=== PATIENT | male | born 1950 | race Caucasian/White ===

== ENCOUNTER → 2016-09-26 | Outpatient (REF) | payer MEDICARE ==
[2016-09-26 12:09] LABS: ANION GAP 8 MEQ/L (8-16); BLOOD UREA NITROGEN 16 MG/DL (7-18); CARBON DIOXIDE LEVEL 30 MEQ/L (21-32); CHLORIDE LEVEL 101 MEQ/L (98-107); CREATININE FOR GFR 1.09 MG/DL (0.70-1.30); GLOMERULAR FILTRATION RATE > 60.0 (>49); GLUCOSE, FASTING 97 MG/DL (80-110); SODIUM LEVEL 139 MEQ/L (136-145)
== END ==
LOC: M SFHCCLAY 08:29
PROVIDERS: ATTEND Family Medicine
DX: E78.00 Pure hypercholesterolemia, unspecified (principal); Z95.1 Presence of aortocoronary bypass graft

== ENCOUNTER → 2016-11-27 | Outpatient (CLI) | payer MEDICARE ==
[~2016-11-27] VITALS: Ht 167.6 cm; Wt 78.0 kg
[~2016-11-27] MED LIST: ASPI81TA85 PO; ATOR40TA PO; GLUC1CAP10 PO; LIDOCAINE 2% INJ 100 MG/5 ML SDV (FOR ANES.) As Ordered ONE; METO25TA74 PO; MULT1TAB10 PO; NEXI20CA PO; PROPOFOL 200 MG/20 ML VIAL As Ordered ONE
--- NOTE | 2016-11-27 10:15 | ROOR ---
Patient Name: Miguel Cleaning Procedure Date: 11/27/2016 10:01 AM Date of : 1950 Age: 66 Room: [facility] Gender: Male Note Status: Finalized Procedure: Colonoscopy Indications: High risk colon cancer surveillance: Personal history of colonic polyps, Last colonoscopy: November 2012 Providers: Miguel MODI MD Referring MD: Alvarez Orozco MD Requesting Provider: Medicines: Monitored Anesthesia Care Complications: No immediate complications. Procedure: Pre-Anesthesia Assessment: - The heart rate, respiratory rate, oxygen saturations, blood pressure, adequacy of pulmonary ventilation, and response to care were monitored throughout the procedure. The Colonoscope was introduced through the anus and advanced to the cecum, identified by appendiceal orifice and ileocecal valve. The colonoscopy was performed without difficulty. The patient tolerated the procedure well. The quality of the bowel preparation was good. Findings: The perianal and digital rectal examinations were normal. A diminutive polyp was found in the sigmoid colon. The polyp was sessile. The polyp was removed with a cold snare. Resection and retrieval were complete. Internal hemorrhoids were found during retroflexion. The hemorrhoids were medium-sized. The exam was otherwise without abnormality. (Exam: Complete, Prep: Good or Excellent.) Impression: - One diminutive polyp in the sigmoid colon, removed with a cold snare. Resected and retrieved. - Internal hemorrhoids. - The examination was otherwise normal. Recommendation: - Repeat colonoscopy in 5 years for surveillance based on personal history of previous adenomatous polyps. - Telephone endoscopist for pathology results in 2 weeks. Miguel Modi MD Miguel MODI MD 11/27/2016 10:14:47 AM This report has been signed electronically. Number of Addenda: 0 Note Initiated On: 11/27/2016 10:01 AM Estimated Blood Loss: Estimated blood loss: none.
[2016-11-27 10:35] VITALS: BP 138/74
== END | disposition home or self-care (01) ==
LOC: M OPP 08:10
PROVIDERS: ATTEND Internal Medicine Gastroenterology
DX: Z12.11 Encounter for screening for malignant neoplasm of colon (principal); K63.5 Polyp of colon; K64.8 Other hemorrhoids; I25.10 Atherosclerotic heart disease of native coronary artery without angina pectoris; I10 Essential (primary) hypertension; E78.00 Pure hypercholesterolemia, unspecified; K44.9 Diaphragmatic hernia without obstruction or gangrene; K21.9 Gastro-esophageal reflux disease without esophagitis; F33.9 Major depressive disorder, recurrent, unspecified; R06.83 Snoring; Z79.899 Other long term (current) drug therapy; Z79.82 Long term (current) use of aspirin; Z88.5 Allergy status to narcotic agent; Z95.1 Presence of aortocoronary bypass graft

== ENCOUNTER → 2018-07-15 | Outpatient (REF) | payer MEDICARE ==
[2018-07-15 12:20] LABS: HEMATOCRIT 45.5 % (42.0-52.0); HEMOGLOBIN 15.5 g/dl (13.5-17.5); MEAN CORPUSCULAR HEMOGLOBIN 30.3 pg (27.0-33.0); MEAN CORPUSCULAR HGB CONC 34.1 g/dl (32.0-36.5); MEAN CORPUSCULAR VOLUME 88.9 fl (80.0-96.0); PLATELET COUNT, AUTOMATED 223 10^3/uL (150-450); RED BLOOD COUNT 5.12 10^6/uL (4.30-6.10); WHITE BLOOD COUNT 5.4 10^3/uL (4.0-10.0)
[2018-07-15 12:53] LABS: ANION GAP 9 MEQ/L (8-16); BLOOD UREA NITROGEN 15 MG/DL (7-18); CALCIUM LEVEL 8.6 MG/DL (8.8-10.2); CARBON DIOXIDE LEVEL 26 MEQ/L (21-32); CHLORIDE LEVEL 105 MEQ/L (98-107); CHOLESTEROL LEVEL 156 MG/DL (<200); CREATININE FOR GFR 1.02 MG/DL (0.70-1.30); GLOMERULAR FILTRATION RATE > 60.0 (>49); GLUCOSE, FASTING 92 MG/DL (70-100); HDL CHOLESTEROL 52 MG/DL (>40); LDL CHOLESTEROL 87 MG/DL (<100); NON-HDL-C 104 MG/DL; POTASSIUM SERUM 4.3 MEQ/L (3.5-5.1); SODIUM LEVEL 140 MEQ/L (136-145); TRIGLYCERIDES LEVEL 83 MG/DL (<150)
== END ==
LOC: M LABDRAWC 11:28
DX: I25.10 Atherosclerotic heart disease of native coronary artery without angina pectoris (principal); E78.00 Pure hypercholesterolemia, unspecified
CPT/HCPCS: 80061

== ENCOUNTER → 2018-10-29 | Outpatient (REF) | payer MEDICARE ==
[~2018-10-29] MED LIST changes: -ATOR40TA PO; +ATOR40TA75 PO; -LIDOCAINE 2% INJ 100 MG/5 ML SDV (FOR ANES.) As Ordered ONE; +METO1TAB32 PO; -METO25TA74 PO; -PROPOFOL 200 MG/20 ML VIAL As Ordered ONE
== END ==
LOC: M SFHCPLAZ 18:21
PROVIDERS: ATTEND Dermatology
DX: C44.320 Squamous cell carcinoma of skin of unspecified parts of face (principal)

== ENCOUNTER → 2019-01-26 | Outpatient (REF) | payer MEDICARE | LOC: M SFHCPLAZ 09:32 | PROVIDERS: ATTEND Dermatology | DX: D04.4 Carcinoma in situ of skin of scalp and neck (principal); L57.0 Actinic keratosis ==

== ENCOUNTER → 2019-07-29 | Outpatient (REF) | payer MEDICARE ==
[2019-07-29 16:57] LABS: ALT/SGPT 53 U/L (12-78); BILIRUBIN,TOTAL 1.1 MG/DL (0.2-1.0); BLOOD UREA NITROGEN 14 MG/DL (7-18); CALCIUM LEVEL 8.9 MG/DL (8.8-10.2); CARBON DIOXIDE LEVEL 31 MEQ/L (21-32); CHLORIDE LEVEL 106 MEQ/L (98-107); CHOLESTEROL LEVEL 164 MG/DL (<200); CHOLESTEROL RISK RATIO 2.928 (<5); CREATININE FOR GFR 1.01 MG/DL (0.70-1.30); FREE T4 0.93 NG/DL (0.76-1.46); GLOMERULAR FILTRATION RATE > 60.0 (>49); GLUCOSE, FASTING 99 MG/DL (70-100); HDL CHOLESTEROL 56 MG/DL (>40); LDL CHOLESTEROL 92 MG/DL (<100); NON-HDL-C 108 MG/DL; POTASSIUM SERUM 4.5 MEQ/L (3.5-5.1); SODIUM LEVEL 141 MEQ/L (136-145); TRIGLYCERIDES LEVEL 79 MG/DL (<150)
== END ==
LOC: M SFHCCLAY 09:56
PROVIDERS: ATTEND Family Medicine
DX: I10 Essential (primary) hypertension (principal); E78.00 Pure hypercholesterolemia, unspecified; Z95.1 Presence of aortocoronary bypass graft
CPT/HCPCS: 80053; 80061; 84439; 84443; G0463

== ENCOUNTER → 2020-02-05 | Outpatient (REF) | payer MEDICARE ==
[2020-02-05 17:53] LABS: ALT/SGPT 52 U/L (12-78); BLOOD UREA NITROGEN 20 MG/DL (7-18); CALCIUM LEVEL 8.8 MG/DL (8.8-10.2); CARBON DIOXIDE LEVEL 27 MEQ/L (21-32); CHLORIDE LEVEL 108 MEQ/L (98-107); CHOLESTEROL LEVEL 148 MG/DL (<200); CREATININE FOR GFR 0.84 MG/DL (0.70-1.30); GLOMERULAR FILTRATION RATE > 60.0 (>42); GLUCOSE, FASTING 93 MG/DL (70-100); HDL CHOLESTEROL 50 MG/DL (>40); LDL CHOLESTEROL 84 MG/DL (<100); NON-HDL-C 98 MG/DL; POTASSIUM SERUM 4.1 MEQ/L (3.5-5.1); SODIUM LEVEL 139 MEQ/L (136-145); TRIGLYCERIDES LEVEL 72 MG/DL (<150)
== END ==
LOC: M SFHCCLAY 08:36
PROVIDERS: ATTEND Family Medicine
DX: I10 Essential (primary) hypertension (principal); E78.00 Pure hypercholesterolemia, unspecified; Z95.1 Presence of aortocoronary bypass graft

== ENCOUNTER → 2020-06-29 | Outpatient (REF) | payer MEDICARE ==
[~2020-06-29] MED LIST changes: -ASPI81TA85 PO; +ASPI81TA86 PO
== END ==
LOC: M SFHCCLAY 08:14
PROVIDERS: ATTEND Family Medicine
DX: Z12.5 Encounter for screening for malignant neoplasm of prostate (principal); Z23 Encounter for immunization; L57.0 Actinic keratosis
CPT/HCPCS: 17000; 17003; 90682; G0008; G0103; G0463

== ENCOUNTER → 2020-07-21 | Outpatient (REF) | payer MEDICARE | LOC: M SMT 17:19 | PROVIDERS: ATTEND Urology | DX: N40.1 Benign prostatic hyperplasia with lower urinary tract symptoms (principal) | CPT/HCPCS: 51798; 81002; 87086; G0463 ==

== ENCOUNTER → 2020-12-29 | Outpatient (REF) | payer MEDICARE ==
[2020-12-29 11:59] LABS: BASO % 0.9 % (0.0-1.0); EOS # 0.2 10^3/uL (0.0-0.5); EOS % 3.7 % (0.0-3.0); HEMATOCRIT 45.7 % (42.0-52.0); HEMOGLOBIN 14.8 g/dl (13.5-17.5); LYMPH # 0.7 10^3/uL (1.5-5.0); LYMPH % 14.3 % (24.0-44.0); MEAN CORPUSCULAR HEMOGLOBIN 30.3 pg (27.0-33.0); MEAN CORPUSCULAR HGB CONC 32.4 g/dl (32.0-36.5); MEAN CORPUSCULAR VOLUME 93.5 fl (80.0-96.0); MONO # 0.4 10^3/uL (0.0-0.8); MONO % 8.6 % (2.0-8.0); NEUTROPHILS # 3.3 10^3/uL (1.5-8.5); NEUTROPHILS % 72.3 % (36.0-66.0); PLATELET COUNT, AUTOMATED 201 10^3/uL (150-450); RED BLOOD COUNT 4.89 10^6/uL (4.30-6.10); WHITE BLOOD COUNT 4.5 10^3/uL (4.0-10.0)
[2020-12-29 12:39] LABS: ALT/SGPT 106 U/L (12-78); BILIRUBIN,TOTAL 0.9 MG/DL (0.2-1.0); BLOOD UREA NITROGEN 18 MG/DL (7-18); CALCIUM LEVEL 8.8 MG/DL (8.8-10.2); CARBON DIOXIDE LEVEL 29 MEQ/L (21-32); CHLORIDE LEVEL 107 MEQ/L (98-107); CHOLESTEROL LEVEL 124 MG/DL (<200); CHOLESTEROL RISK RATIO 2.032 (<5); CREATININE FOR GFR 0.89 MG/DL (0.70-1.30); GLOMERULAR FILTRATION RATE > 60.0 (>42); GLUCOSE, FASTING 100 MG/DL (70-100); HDL CHOLESTEROL 61 MG/DL (>40); LDL CHOLESTEROL 51 MG/DL (<100); NON-HDL-C 63 MG/DL; POTASSIUM SERUM 4.6 MEQ/L (3.5-5.1); SODIUM LEVEL 139 MEQ/L (136-145); TOTAL PROTEIN 6.5 GM/DL (6.4-8.2); TRIGLYCERIDES LEVEL 60 MG/DL (<150)
== END ==
LOC: M SFHCCLAY 08:05
PROVIDERS: ATTEND Family Medicine
DX: E78.00 Pure hypercholesterolemia, unspecified (principal); I10 Essential (primary) hypertension; K21.9 Gastro-esophageal reflux disease without esophagitis; Z95.1 Presence of aortocoronary bypass graft

== ENCOUNTER → 2021-01-10 | Outpatient (CLI) | payer MEDICARE ==
--- NOTE | 2021-01-10 12:03 | REP ---
INDICATION: HYDROCELE. COMPARISON: None. TECHNIQUE: Real-time sonographic evaluation of scrotum and contents performed. FINDINGS: Testicles are normal in size and echotexture, right testicle measuring 5.1 x 2.5 x 3.3 cm and left testicle 4.7 x 2.6 x 2.9 cm. There is no testicular mass and no evidence of testicular torsion. Blood flow is seen in each testicle with duplex Doppler evaluation. There are subcentimeter cysts in the head of the right epididymis, maximum 7 mm in diameter. There are small bilateral hydroceles. IMPRESSION: No testicular mass or torsion. Subcentimeter cysts in the head of the right epididymis. Small bilateral hydroceles. <Electronically signed by Yunior Sy > 01/10/21 [id number]
== END ==
LOC: M RAD 09:52
PROVIDERS: ATTEND Family Medicine
DX: N43.3 Hydrocele, unspecified (principal); N50.3 Cyst of epididymis

== ENCOUNTER 2021-06-23 11:31 | Outpatient (CLI) | payer MEDICARE ==
[~2021-06-23 11:31] MED LIST changes: +ALBUTEROL 90 MCG/ACT 8GM HFA INHALER INH PRN; +ALBUTEROL SULFATE 2.5 MG/0.5 ML INH NEB SOLN INH PRN; +EPINEPHrine INJ 1 MG/ML 1ML AMP IM PRN; +NS 1,000 ML IV SCH; +diphenhydrAMINE 50MG/ML VIAL (J1200) IV PRN; +methylPREDNISolone 125MG 2ML VIAL IV PRN
[2021-06-23] MEDS ORDERED: LISI10TA22 PO (13:31)
[2021-06-23] MEDS ORDERED: ASPI81TA26 PO (13:31)
[2021-06-23] MEDS ORDERED: EZET10TA21 PO (13:31)
[2021-06-23] MEDS ORDERED: MULT-40 PO (13:31)
[2021-06-23] MEDS ORDERED: ATOR80TA59 PO (13:31)
[2021-06-23] MEDS ORDERED: TAMS1CAP17 PO (13:31)
[2021-06-23 16:11] VITALS: BP 177/85
[2021-06-23] MEDS ORDERED: ACETAMINOPHEN TAB 650MG DOSE (2X325MG) PO ONE (16:30)
[2021-06-23] MEDS ORDERED: diphenhydrAMINE 25MG CAP PO ONE (16:30)
[2021-06-23 16:41] VITALS: BP 174/77
[2021-06-23] MEDS ORDERED: BAMLANIVIMAB 700 MG, ETESEVIMAB 1,400 MG in NS 250 ML IV ONE (17:00)
[2021-06-23 17:15] VITALS: BP 142/72
[2021-06-23 17:45] VITALS: BP 148/68
== END 2021-06-23 18:40 | disposition home or self-care (01) ==
LOC: M OPCLI4PR 11:31 → M 4MAIN 15:00 → M OPCLI4PR 18:40
PROVIDERS: ATTEND Family Medicine
DX: U07.1 COVID-19 (principal)

== ENCOUNTER 2021-06-23 12:24 | Emergency (ER) | payer MEDICARE ==
[~2021-06-23] VITALS: Ht 172.7 cm; Wt 81.8 kg
[~2021-06-23 12:24] MED LIST changes: -ALBUTEROL 90 MCG/ACT 8GM HFA INHALER INH PRN; -ALBUTEROL SULFATE 2.5 MG/0.5 ML INH NEB SOLN INH PRN; -EPINEPHrine INJ 1 MG/ML 1ML AMP IM PRN; -NS 1,000 ML IV SCH; -diphenhydrAMINE 50MG/ML VIAL (J1200) IV PRN; -methylPREDNISolone 125MG 2ML VIAL IV PRN
--- OUTSIDE RECORDS SUMMARY | 2021-06-23 12:30 | CCD ---
Continuity of Care Document (CCD) Created on: 04/24/2021 Miguel Cleaning External Reference #: [id number] : 1950 Sex: Male Author Author Miguel [facility]IGGS P.A. Organization Unknown Address [address] [place] [address] Phone [phone] Care Team Providers Care Food Critic Name Role Phone Alvarez Orozco MD AUTM [phone] Hayden Henry [employer] AUTM [phone] Problems Description No Information Available Social History Type Date Description Comments Sex Unknown ETOH Use Occasionally consumes alcohol Tobacco Use Start: Unknown End: Unknown Patient is a former smoker Tobacco Use Start: Unknown The patient has never vaped Allergies, Adverse Reactions, Alerts Description No Known Drug Allergies Medications Active Medications SIG Qnty Indications Ordering Provide r Date Flomax Unknown Lisinopril Unknown Atorvastatin Calcium Unknown 0 Nexium Unknown Ezetimibe 10mg Tablets Unknown Immunizations Description No Information Available Vital Signs Date Vital Result Comment 08/24/2020 12:54pm Heart Rate 76 /min Respiratory Rate 18 /min O2 % BldC Oximetry 99 % Body Temperature 98.6 F Weight 178.00 lb Height 66 inches 5'6" BMI (Body Mass Index) 28.7 kg/m2 Pain Level 1 Results Description No Information Available Procedures Description No Information Available Medical Devices Description No Information Available Encounters Description No Information Available Assessments Date Code Description Provider 04/24/2021 Z20.828 Contact with and (barrera spected) exposure to other viral communicable diseases Renu Logan Plan of Treatment No Information Available Functional Status Description No Information Available Mental Status Description No Information Available Referrals Description No Information Available
--- OUTSIDE RECORDS SUMMARY | 2021-06-23 12:30 | CCD | Continuity of Care Document ---
Author Author [facility] Organization Unknown Address [address] [place] [address] [place] [address] Phone [phone] Care Team Providers Care Water Plant Pump Operator Name Role Phone Alvarez Orozco MD AUTM [phone] Hayden Co [employer] AUTM [phone] Problems Description No Information Available Social History Type Date Description Comments Sex Unknown ETOH Use Occasionally consumes alcohol Tobacco Use Start: Unknown End: Unknown Patient is a former smoker Tobacco Use Start: Unknown The patient has never vaped Smoking Status Reviewed: 06/22/21 The patient has never vaped Allergies and adverse reactions Description No Known Drug Allergies Medications Active Medications SIG Qnty Indications Ordering Provide r Date Flomax Unknown Lisinopril Unknown Atorvastatin Calcium Unknown 0 Nexium Unknown Ezetimibe 10mg Tablets Unknown Tylenol 325mg Capsules last dose at 630a Unknown Immunizations Description No Information Available Vital Signs Date Vital Result Comment 06/22/2021 12:18pm BP Systolic 132 mmHg BP Diastolic 78 mmHg Heart Rate 74 /min Respiratory Rate 20 /min O2 % BldC Oximetry 97 % Body Temperature 99.1 F Weight 180.00 lb Height 66 inches 5'6" BMI (Body Mass Index) 29.0 kg/m2 Pain Level 5 08/24/2020 12:54pm Heart Rate 76 /min Respiratory Rate 18 /min O2 % BldC Oximetry 99 % Body Temperature 98.6 F Weight 178.00 lb Height 66 inches 5'6" BMI (Body Mass Index) 28.7 kg/m2 Pain Level 1 Results Description No Information Available Procedures Date Code Description Status 06/22/2021 27509 Office/Outpatient Established Olamide giraldo [facility] 20-29 Min Completed Medical Devices Description No Information Available Encounters Type Date Location Provider Dx Diagnosis Office Visit 06/22/2021 9:05a Main Office Go Hannah, P.Kym J0 6.9 Acute upper respiratory infection, unspecified U07.1 Covid-19 Assessments Date Code Description Provider 06/22/2021 J06.9 Acute upper respiratory infectio n, unspecified Go Hannah, P.A. 06/22/2021 U07.1 Covid-19 Go friedman, P.A. 04/24/2021 Z20.828 Contact with and (barrera spected) exposure to other viral communicable diseases Go Hannah, P.ALena Plan of Treatment No Information Available Functional Status Description No Information Available Mental Status Description No Information Available Referrals Description No Information Available
--- OUTSIDE RECORDS SUMMARY | 2021-06-23 12:30 | CCD | Continuity of Care Document ---
Author Author Miguel BRIGGS P.A. Organization Unknown Address [address] [place] [address] Phone [phone] Care Team Providers Care Photoengraver Apprentice Name Role Phone Alvarez Orozco MD AUTM [phone] Hayden Co [employer] AUTM [phone] Problems Description No Information Available Social History [...] Available Procedures Date Code Description Status 06/22/2021 13688 Office/Outpatient Established Olamide giraldo [facility] 20-29 Min Completed Medical Devices Description No Information Available Encounters Type Date Location Provider Dx Diagnosis Office Visit 06/22/2021 9:05a Main Office Go Brigsg, P.Kym J0 6.9 Acute upper respiratory infection, unspecified U07.1 Covid-19 Assessments Date Code Description Provider 06/22/2021 J06.9 Acute upper respiratory infectio n, unspecified Go Briggs, P.A. 06/22/2021 U07.1 Covid-19 Go friedman, P.A. 04/24/2021 Z20.828 Contact with and (barrera spected) exposure to other viral communicable diseases Go Briggs, P.ALena Plan of Treatment No Information Available Functional Status Description No Information Available Mental Status Description No Information Available Referrals Description No Information Available
--- OUTSIDE RECORDS SUMMARY | 2021-06-23 12:30 | CCD | Continuity of Care Document ---
Author Author Miguel BRIGGS P.A. Organization Unknown Address [address] [place] [address] Phone [phone] Care Team Providers Care Sheet Rock Nailer Name Role Phone Alvarez Orozco MD AUTM [phone] Hayden Co [employer] AUTM [phone] Problems Description No Information Available Social History [...] Available Procedures Date Code Description Status 06/22/2021 21844 Office/Outpatient Established Olamide giraldo [facility] 20-29 Min Completed Medical Devices Description No Information Available Encounters Type Date Location Provider Dx Diagnosis Office Visit 06/22/2021 9:05a Main Office Go Briggs, P.Kym J0 6.9 Acute upper respiratory infection, [...]
--- OUTSIDE RECORDS SUMMARY | 2021-06-23 12:30 | CCD | Continuity of Care Document ---
Author Author Miguel BRIGGS P.A. Organization Unknown Address [address] [place] [address] Phone [phone] Care Team Providers Care Breaker Operator Name Role Phone Alvarez Orozco MD AUTM [phone] Hayden Co [employer] AUTM [phone] Problems Description No Information Available Social History [...] Available Encounters Description No Information Available Assessments Description No Information Available Plan of Treatment No Information Available Functional Status Description No Information Available Mental Status Description No Information Available Referrals Description No Information Available
--- OUTSIDE RECORDS SUMMARY | 2021-06-23 12:30 | CCD | Continuity of Care Document ---
Author Author Miguel BRIGGS P.A. Organization Unknown Address [address] [place] [address] Phone [phone] Care Team Providers Care Health Associate Name Role Phone Alvarez Orozco MD AUTM [phone] Hayden Co [employer]li AUTM [phone] Problems Description No Information Available Social History [...] Available Procedures Date Code Description Status 06/22/2021 18267 Office/Outpatient Established Olamide giraldo [facility] 20-29 Min Completed Medical Devices Description No [...]
--- OUTSIDE RECORDS SUMMARY | 2021-06-23 12:30 | CCD ---
Continuity of Care Document (CCD) Created on: 06/22/2021 Miguel Cleaning External Reference #: [id number] : 1950 Sex: Male Author Author Miguel BRIGGS P.A. Organization Unknown Address [address] [place] [address] Phone [phone] Care Team Providers Care Industrial Training Specialist Name Role Phone Alvarez Orozco MD AUTM [phone] Hayden Co [employer] AUTM [phone] Problems Description No Information Available Social History [...] Available Procedures Date Code Description Status 06/22/2021 73682 Office/Outpatient Established Olamide giraldo [facility] 20-29 Min Completed Medical Devices Description [...]
--- OUTSIDE RECORDS SUMMARY | 2021-06-23 12:31 | CCD ---
Author Author [facility] Organization [facility] Address Unknown Phone Unavailable Care Team Providers Care Plasma Processor Name Role Phone Bijal De Oliveira PA Unavailable Unavailable De OliveiraBijal PA Unavailable Unavailable De OliveiraBijal PA Unavailable Unavailable De OliveiraBijal PA Unavailable Unavailable De OliveiraBijal PA Unavailable Unavailable De OliveiraBijal PA Unavailable Unavailable De OliveiraBijal PA Unavailable Unavailable De OliveiraBijal PA Unavailable Unavailable De OliveiraBijal PA Unavailable Unavailable De OliveiraBijal PA Unavailable Unavailable CHESTERJOSH PA Unavailable Unavailable CHESTERJOSH PA Unavailable Unavailable CHESTERJOSH PA Unavailable Unavailable CHESTERJOSH PA Unavailable Unavailable CHESTERJOSH PA Unavailable Unavailable CHESTERJOSH PA Unavailable Unavailable CHESTERVIDALJOSH PA Unavailable Unavailable CHESTER JOSH PA Unavailable Unavailable CHESTERVIDALJOSH PA Unavailable Unavailable CHESTER JOSH PA Unavailable Unavailable CHESTER JOSH PA Unavailable Unavailable CHESTER, JOSH PA Unavailable Unavailable CHESTER, JOSH PA Unavailable Unavailable CHESTER, JOSH PA Unavailable Unavailable CHESTER, JOSH PA Unavailable Unavailable CHESTER, JOSH PA Unavailable Unavailable CHESTER, JOSH PA Unavailable Unavailable CHESTER, JOSH PA Unavailable Unavailable CHESTER, JOSH PA Unavailable Unavailable CHESTER, JOSH PA Unavailable Unavailable CHESTER, JOSH PA Unavailable Unavailable CHESTER, JOSH PA Unavailable Unavailable CHESTER, JOSH PA Unavailable Unavailable CHESTER, JOSH PA Unavailable Unavailable CHESTER, JOSH PA Unavailable Unavailable CHESTER, JOSH PA Unavailable Unavailable CHESTER, JOSH PA Unavailable Unavailable CHESTER, JOSH PA Unavailable Unavailable CHESTER, JOSH PA Unavailable Unavailable CHESTER, JOSH PA Unavailable Unavailable CHESTER, JOSH PA Unavailable Unavailable CHESTER, JOSH PA Unavailable Unavailable CHESTER, JOSH PA Unavailable Unavailable CHESTER, JOSH PA Unavailable Unavailable CHESTER, JOSH PA Unavailable Unavailable CHESTER, JOSH PA Unavailable Unavailable Arceo, L Billie PA Unavailable Unavailable Arceo, L Billie PA Unavailable Unavailable Arceo, L Billie PA Unavailable Unavailable Arceo, L Billie PA Unavailable Unavailable Arceo, L Billie PA Unavailable Unavailable Arceo, L Billie PA Unavailable Unavailable Arceo, L Billie PA Unavailable Unavailable Arceo, L Billie PA Unavailable Unavailable Arceo, L Billie PA Unavailable Unavailable Arceo, L Billie PA Unavailable Unavailable Arceo, L Billie PA Unavailable Unavailable Arceo, L Billie PA Unavailable Unavailable Arceo, L Billie PA Unavailable Unavailable Arceo, L Billie PA Unavailable Unavailable Arceo, L Billie PA Unavailable Unavailable Arcoe, L Billie PA Unavailable Unavailable Arceo, L Billie PA Unavailable Unavailable Arceo, L Billie PA Unavailable Unavailable Arceo, L Billie PA Unavailable Unavailable Arceo, L Billie PA Unavailable Unavailable Arceo, L Billie PA Unavailable Unavailable Arceo, L Billie PA Unavailable Unavailable Arceo, L Billie PA Unavailable Unavailable Arceo, L Billie PA Unavailable Unavailable Arceo, L Billie PA Unavailable Unavailable Arceo, L Billie PA Unavailable Unavailable Arceo, L Billie PA Unavailable Unavailable Arceo, L Billie PA Unavailable Unavailable Arceo, L Billie PA Unavailable Unavailable Arceo, L Billie PA Unavailable Unavailable Arceo, L Billie PA Unavailable Unavailable Arceo, L Billie PA Unavailable Unavailable Arceo, L Billie PA Unavailable Unavailable Arceo, L Billie PA Unavailable Unavailable Arceo, L Billie PA Unavailable Unavailable Arceo, L Billie PA Unavailable Unavailable Arceo, L Billie PA Unavailable Unavailable Arceo, L Billie PA Unavailable Unavailable Arceo, L Billie PA Unavailable Unavailable Re-disclosure Warning The records that you are about to access may contain information from federally-assisted alcohol or drug abuse programs. If such information is present, then the following federally mandated warning applies: This information has been disclosed to you from records protected by federal confidentiality rules (42 CFR part 2). The federal rules prohibit you from making any further disclosure of this information unless further disclosure is expressly permitted by the written consent of the person to whom it pertains or as otherwise permitted by 42 CFR part 2. A general authorization for the release of medical or other information is NOT sufficient for this purpose. The Federal rules restrict any use of the information to criminally investigate or prosecute any alcohol or drug abuse patient.The records that you are about to access may contain highly sensitive health information, the redisclosure of which is protected by Article 27-F of the [facility] Public Health law. If you continue you may have access to information: Regarding HIV / AIDS; Provided by facilities licensed or operated by the [facility] Office of Mental Health; or Provided by the [facility] Office for People With Developmental Disabilities. If such information is present, then the following [facility] mandated warning applies: This information has been disclosed to you from confidential records which are protected by state law. State law prohibits you from making any further disclosure of this information without the specific written consent of the person to whom it pertains, or as otherwise permitted by law. Any unauthorized further disclosure in violation of state law may result in a fine or assisted sentence or both. A general authorization for the release of medical or other information is NOT sufficient authorization for further disc losure. Family History Family Member Name Family Member Gender Family Member Status Date o f Status Description Data Source(s) Unknown Unknown Problem MEDENT ([facility] ) Encounters Encounter Providers Location Date Indications Data Source(s ) Outpatient Attender: JOSH berry 06/22/2021 09:05:00 AM EDT [facility] ([facility] [place] [address] [facility] [address] 10/17/2020 12:00:00 AM EST eCW1 ([facility]) Outpatient [address] [facility] [place] [address] 08/29/2020 12:00:00 AM EST eCW1 ([facility]) Outpatient Attender: Marielle armijo 08/24/2020 12:15:00 PM EST MEDENT ([facility]) [place] [address] [facility] [address] 07/28/2020 12:00:00 AM EST eCW1 ([facility]) [place] [address] [address] 07/21/2020 12:00:00 AM EST eCW1 ([facility]) Outpatient Attender: Billie [email or web address] 07/2020 12:00:00 AM EST - 07/20/2020 12:14:56 PM EST [facility] Out[place] [address] [address] 06/29/2020 12:00:00 AM EDT eCW1 ([facility]) Office Visit, Est Pt., Level 3 PC [address] [place] [address] 06/29/2020 12:00:00 AM EDT eCW1 ([facility]) Immunizations Vaccine Date Status Description Data Source(s) COVID-19 VACCINE Moderna 10/28/2020 12:00:00 AM EST completed [facility] Vaccine Series Complete: YESThis Data wa s Submitted to [facility]. COVID-19 VACCINE, MRNA-1273, LNP-S (MODERNA)/PF 10/28/2020 1 2:00:00 AM EST completed [facility] COVID-19 VACCINE, MRNA-1273, LNP-S (MODERNA)/PF 09/30/2020 1 2:00:00 AM EST completed [facility] COVID-19 VACCINE Moderna 09/30/2020 12:00:00 AM EST completed [facility] Vaccine Series Complete: NOThis Data was Submitted to [facility]. influenza, recombinant, quadrIvalent,injectable, prese rvative free 06/29/2020 08:22:00 AM EDT completed eCW1 ([facility]) influenza, recombinant, quadrIvalent,injectable, prese rvative free 06/29/2020 08:22:00 AM EDT completed eCW1 ([facility]) influenza, recombinant, quadrIvalent,injectable, prese rvative free 06/29/2020 08:22:00 AM EDT completed eCW1 ([facility]) influenza, recombinant, quadrIvalent,injectable, prese rvative free 06/29/2020 08:22:00 AM EDT completed eCW1 ([facility]) influenza, recombinant, quadrIvalent,injectable, prese rvative free 06/29/2020 08:22:00 AM EDT completed eCW1 ([facility]) influenza, recombinant, quadrIvalent,injectable, prese rvative free 06/29/2020 08:22:00 AM EDT completed eCW1 ([facility]) Medications Medication Brand Name Start Date Product Form Dose Route Admi nistrative Instructions Pharmacy Instructions Status Indications Reaction Description Data Source(s) 80 mg 01/27/2021 12:00:00 AM EDT tablet 90 TAKE ONE TABLET BY MOUTH EVERY DAY TAKE ONE TABLET BY MOUTH EVERY DAY SOLD: 01/29/2021 [facility] 80 mg 01/27/2021 12:00:00 AM EDT tablet 90 TAKE ONE TABLET BY MOUTH EVERY DAY TAKE ONE TABLET BY MOUTH EVERY DAY SOLD: 05/01/2021 [facility] 0.4 mg 01/25/2021 12:00:00 AM EDT capsule 30 TAKE ONE CAPSULE BY MOUTH EVERY DAY TAKE ONE CAPSULE BY MOUTH EVERY DAY SOLD: 03/31/2021 [facility] 0.4 mg 01/25/2021 12:00:00 AM EDT capsule 30 TAKE ONE CAPSULE BY MOUTH EVERY DAY TAKE ONE CAPSULE BY MOUTH EVERY DAY SOLD: 05/01/2021 [facility] 0.4 mg 01/25/2021 12:00:00 AM EDT capsule 30 TAKE ONE CAPSULE BY MOUTH EVERY DAY TAKE ONE CAPSULE BY MOUTH EVERY DAY SOLD: 06/03/2021 [facility] 0.4 mg 01/25/2021 12:00:00 AM EDT capsule 30 TAKE ONE CAPSULE BY MOUTH EVERY DAY TAKE ONE CAPSULE BY MOUTH EVERY DAY SOLD: 02/27/2021 [facility] 0.4 mg 01/25/2021 12:00:00 AM EDT capsule 30 TAKE ONE CAPSULE BY MOUTH EVERY DAY TAKE ONE CAPSULE BY MOUTH EVERY DAY SOLD: 01/25/2021 [facility] 10 mg 01/18/2021 12:00:00 AM EDT tablet 90 TAKE ONE TABLET BY MOUTH EVERY DAY TAKE ONE TABLET BY MOUTH EVERY DAY SOLD: 04/20/2021 [facility] 10 mg 01/18/2021 12:00:00 AM EDT tablet 90 TAKE ONE TABLET BY MOUTH EVERY DAY TAKE ONE TABLET BY MOUTH EVERY DAY SOLD: 01/19/2021 [facility] 10 mg 10/18/2020 12:00:00 AM EST tablet 90 TAKE ONE TABLET BY MOUTH EVERY DAY TAKE ONE TABLET BY MOUTH EVERY DAY SOLD: 10/21/2020 [facility] 10 mg 10/18/2020 12:00:00 AM EST tablet 90 TAKE ONE TABLET BY MOUTH EVERY DAY TAKE ONE TABLET BY MOUTH EVERY DAY SOLD: 04/20/2021 [facility] 10 mg 10/18/2020 12:00:00 AM EST tablet 90 TAKE ONE TABLET BY MOUTH EVERY DAY TAKE ONE TABLET BY MOUTH EVERY DAY SOLD: 01/19/2021 [facility] 10 mg 08/18/2020 12:00:00 AM EST tablet 30 TAKE ONE TABLET BY MOUTH EVERY DAY TAKE ONE TABLET BY MOUTH EVERY DAY SOLD: 08/21/2020 [facility] 0.4 mg 07/29/2020 12:00:00 AM EST capsule 30 TAKE ONE CAPSULE BY MOUTH EVERY DAY TAKE ONE CAPSULE BY MOUTH EVERY DAY SOLD: 12/28/2020 [facility] 0.4 mg 07/29/2020 12:00:00 AM EST capsule 30 TAKE ONE CAPSULE BY MOUTH EVERY DAY TAKE ONE CAPSULE BY MOUTH EVERY DAY SOLD: 08/27/2020 [facility] 0.4 mg 07/29/2020 12:00:00 AM EST capsule 30 TAKE ONE CAPSULE BY MOUTH EVERY DAY TAKE ONE CAPSULE BY MOUTH EVERY DAY SOLD: 07/29/2020 [facility] 0.4 mg 07/29/2020 12:00:00 AM EST capsule 30 TAKE ONE CAPSULE BY MOUTH EVERY DAY TAKE ONE CAPSULE BY MOUTH EVERY DAY SOLD: 11/28/2020 [facility] 0.4 mg 07/29/2020 12:00:00 AM EST capsule 30 TAKE ONE CAPSULE BY MOUTH EVERY DAY TAKE ONE CAPSULE BY MOUTH EVERY DAY SOLD: 10/28/2020 [facility] 0.4 mg 07/29/2020 12:00:00 AM EST capsule 30 TAKE ONE CAPSULE BY MOUTH EVERY DAY TAKE ONE CAPSULE BY MOUTH EVERY DAY SOLD: 09/29/2020 [facility] Tamsulosin hydrochloride 0.4 MG Oral Capsule [Flomax] Flomax 0.4 MG Flomax 0.4 MG 07/28/2020 12:00:00 AM EST 1.0 {capsule} active Flomax 0.4 MG eCW1 ([facility]) Tamsulosin hydrochloride 0.4 MG Oral Capsule [Flomax] Flomax 0.4 MG Flomax 0.4 MG 07/28/2020 12:00:00 AM EST 1.0 {capsule} active Flomax 0.4 MG eCW1 ([facility]) Tamsulosin hydrochloride 0.4 MG Oral Capsule [Flomax] Flomax 0.4 MG Flomax 0.4 MG 07/28/2020 12:00:00 AM EST 1.0 {capsule} active Flomax 0.4 MG eCW1 ([facility]) atorvastatin 80 MG Oral Tablet ATORVASTATIN CALCIUM 07/27/2020 1 2:00:00 AM EST tablet 90 TAKE ONE TABLET BY MOUTH EVERY D AY TAKE ONE TABLET BY MOUTH EVERY DAY SOLD: 07/29/2020 [facility] 80 mg 07/27/2020 12:00:00 AM EST tablet 90 TAKE ONE TABLET BY MOUTH EVERY DAY TAKE ONE TABLET BY MOUTH EVERY DAY SOLD: 10/28/2020 [facility] ezetimibe 10 MG Oral Tablet EZETIMIBE 07/20/2020 12:00:00 AM EST table t 90 TAKE ONE TABLET BY MOUTH EVERY DAY TAKE ONE TABLET BY MOUTH EVERY DAY SOLD: 10/21/2020 [facility] ezetimibe 10 MG Oral Tablet EZETIMIBE 07/20/2020 12:00:00 AM EST table t 90 TAKE ONE TABLET BY MOUTH EVERY DAY TAKE ONE TABLET BY MOUTH EVERY DAY SOLD: 07/22/2020 [facility] 10 mg 06/20/2020 12:00:00 AM EDT tablet 30 TAKE ONE TABLET BY MOUTH EVERY DAY TAKE ONE TABLET BY MOUTH EVERY DAY SOLD: 06/22/2020 [facility] 10 mg 06/20/2020 12:00:00 AM EDT tablet 30 TAKE ONE TABLET BY MOUTH EVERY DAY TAKE ONE TABLET BY MOUTH EVERY DAY SOLD: 07/22/2020 [facility] 80 mg 06/26/2019 12:00:00 AM EDT tablet 90 TAKE ONE TABLET BY MOUTH EVERY DAY TAKE ONE TABLET BY MOUTH EVERY DAY SOLD: 04/29/2020 [facility] Insurance Providers Payer name Policy type / Coverage type Policy ID Covered constitution party ID Covered constitution party's relationship to dominguez Policy Dominguez Plan Information [facility] Part B [id number] Family Dependent [id number] [facility] Part B [id number] Self [id number] MEDICARE COMPLETE [id number] SP [id number] MEDICARE COMPLETE [id number] SP [id number] [facility]-Health Maintenance Organization ( O) [id number] ANSI-Medicare Part B [id number] [facility]-Health Maintenance Organization ( O) [id number] ANSI-Medicare Part B [id number] [facility]-Health Maintenance Organization ( O) [id number] ANSI-Medicare Part B [id number] ANSI-Health Maintenance Organization ( O) [id number] [facility]-Medicare Part B [id number] ANSI-Health Maintenance Organization ( O) [id number] [employer] Medicare Commercial [id number] Self [id number] [employer] MEDICARE -CLINIC [id number] 18 [id number] [employer] MEDICARE [id number] 18 [id number] MEDICARE COMPLETE-[facility] O [id number] O [id number] [facility] MEDICARE [id number] Keila [id number] [place] P[place] 302/[id number] [place] [id number] [place]/307 [id number] [place]2 [id number] MEDICARE COMPLETE [id number] SP [id number] MEDICARE COMPLETE [id number] SP [id number] [facility] MEDICARE [id number] Keila [id number] ANS-Medicare Part [id number] Problems, Conditions, and Diagnoses Code Display Name Description Problem Type Effective Dates Data Source(s) E78.00 Pure hypercholesterolemia, unspecified P ure hypercholesterolemia, unspecified Diagnosis 07/20/2020 10:47:57 AM EST [facility] I10 Essential (primary) hypertension Essential (primary) h ypertension Diagnosis 07/20/2020 10:47:57 AM EST [facility] I65.21 Occlusion and stenosis of right carotid artery Occlusion and stenosis of right carotid Diagnosis 07/20/2020 10:47:57 AM EST [facility] I25.10 Atherosclerotic heart diseas e of [place] coronary artery without angina pectoris Atherosclerotic heart disease of [place] Diagnosis 07/20/2020 10:47:57 AM EST [facility] N52.1 [id number] 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 Problem 07/21/2020 12:00:00 AM EST eCW1 ([facility]) L82.1 [id number] SK (seborrheic keratosis) Problem 06/29/2020 12:00:00 AM EDT eCW1 ([facility]) D18.01 [id number] Muhammad angioma Problem 06/29/2020 12:00:00 A M EDT eCW1 ([facility]) D22.61 [id number] Multiple benign nevi of right upper extre mity Problem 06/29/2020 12:00:00 AM EDT eCW1 ([facility]) D22.62 [id number] Multiple benign nevi of left upper extrem ity Problem 06/29/2020 12:00:00 AM EDT eCW1 ([facility]) L90.5 [id number] Scar Problem 06/29/2020 12:00:00 AM ED T eCW1 ([facility]) Surgeries/Procedures Procedure Description Date Indications Data Source(s) OFFICE OUTPATIENT VISIT 15 MINUTES 06/22/2021 12:00:00 AM EDT MEDENT ([facility]) DUPLEX SCAN EXTRACRANIAL ART COMPL BI STUDY 03/17/2021 12:00:00 AM EDT MEDENT ([facility]) uro PVR (Post Voiding Residual) Bladder Scan 0 12:00:00 AM EST eCW1 ([facility]) Immunization: Flublok Quadrivalent (18 years & older) 0.5mL IM (Influenza) 06/29/2020 12:00:00 AM EDT eCW1 ([facility]) Results ID Date Data Source [id number] 04/24/2021 12:00:00 AM EDT [facility] Name Value Range Interpretation Code Description Data Cynthia rce(s) Supporting Document(s) SARS-CoV2 Rapid Antigen Negative [facility] This lab was reported by [facility]. ID Date Data Source [id number] 08/24/2020 12:00:00 AM EST [facility] Name Value Range Interpretation Code Description Data Cynthia rce(s) Supporting Document(s) SARS coronavirus 2 Ag [facility] This lab was ordered by [facility] and reported by [facility]. ID Date Data Source [id number] 03/17/2021 10:36:00 AM EDT MED[facility] ([facility]) Name Value Range Interpretation Code Description Data Cynthia rce(s) Supporting Document(s) Carotid Ultrasound Bilateral Laboratory test result MEDENT ([facility]) ID Date Data Source URINE CULTURE 07/21/2020 12:00:00 AM EST eCW1 ([facility]) Name Value Range Interpretation Code Description Data Cynthia rce(s) Supporting Document(s) URINE CULTURE eCW1 ([facility]) ID Date Data Source PSA SCREENING 06/29/2020 06:49:00 AM EDT eCW1 ([facility]) Name Value Range Interpretation Code Description Data Cynthia rce(s) Supporting Document(s) 1.72 PSA SCREENING eCW1 ([facility]) Procedure Social History Code Duration Value Status Description Data Source(s ) Smoking 03/17/2021 12:00:00 AM EDT Patient is a former smoker completed Patient is a former smoker MEDENT ([facility]) Smoking 08/29/2020 12:00:00 AM EST Never Smoker completed Never S moker eCW1 ([facility]) Smoking 08/29/2020 12:00:00 AM EST Never Smoker completed Never S moker eCW1 ([facility]) Smoking 07/21/2020 12:00:00 AM EST Never Smoker completed Never S moker eCW1 ([facility]) Smoking 07/21/2020 12:00:00 AM EST Never Smoker completed Never S moker eCW1 ([facility]) Smoking 06/29/2020 12:00:00 AM EDT Never Smoker completed Never S moker eCW1 ([facility]) Smoking 06/29/2020 12:00:00 AM EDT Never Smoker completed Never S moker eCW1 ([facility]) Vital Signs ID Date Data Source UNK Name Value Range Interpretation Code Description Data Source(s) Systolic blood pressure 132 mm[Hg] 132 mm[Hg] M EDENT ([facility]) Diastolic blood pressure 78 mm[Hg] 78 mm[Hg] MEDENT ([facility]) Heart rate 74 /min 74 /min MEDENT ([facility]) Respiratory rate 20 /min 20 /min MEDENT ( [facility]) Oxygen saturation in Arterial blood by Pulse oximetry 97 % 97 % MEDENT ([facility]) Body temperature 99.1 [degF] 99.1 [degF] MEDENT ([facility]) Body weight 180.00 [lb_av] 180.00 [lb_av] MEDEN T ([facility]) Body height 66 [in_i] 66 [in_i] MEDENT ([facility]) 5'6" Body mass index (BMI) [Ratio] 29.0 kg/m2 29.0 k g/m2 MEDENT ([facility]) Systolic blood pressure 128 mm[Hg] 128 mm[Hg] M EDENT [facility]) Diastolic blood pressure 69 mm[Hg] 69 mm[Hg] MEDENT ([facility]) Systolic blood pressure 132 mm[Hg] 132 mm[Hg] M EDENT ([facility]) Diastolic blood pressure 71 mm[Hg] 71 mm[Hg] [facility] ([facility]) Heart rate 68 /min 68 /min MED[facility] ([facility]) Body temperature 95.0 [degF] 95.0 [degF] MEDENT ([facility]) Body weight 178.6 [lb_av] 178.6 [lb_av] eCW1 ([facility]) Body height 65.5 [in_i] 65.5 [in_i] eCW1 ([facility]) Body mass index (BMI) [Ratio] 29.27 kg/m2 29.27 kg/m2 eCW1 ([facility]) Heart rate 71 /min 71 /min eCW1 ([facility]) Respiratory rate 18 /min 18 /min eCW1 ([facility]) Body temperature 96.8 [degF] 96.8 [degF] eCW1 ( [facility]) Systolic blood pressure 136 mm[Hg] 136 mm[Hg] e CW1 ([facility]) Diastolic blood pressure 78 mm[Hg] 78 mm[Hg] eCW1 ([facility]) Respiratory rate 18 /min 18 /min MEDENT ( [facility]) Oxygen saturation in Arterial blood by Pulse oximetry 99 % 99 % MEDENT ([facility]) Body temperature 98.6 [degF] 98.6 [degF] MEDENT ([facility]) Body height 66 [in_i] 66 [in_i] MEDENT ([facility]) 5'6" Body mass index (BMI) [Ratio] 28.7 kg/m2 28.7 k g/m2 MEDENT ([facility]) Body weight 178.00 [lb_av] 178.00 [lb_av] MEDEN T ([facility]) Heart rate 76 /min 76 /min MEDENT ([facility]) Body weight 176 [lb_av] 176 [lb_av] eCW1 ([facility]) Body height 65.5 [in_i] 65.5 [in_i] eCW1 ([facility]) Body mass index (BMI) [Ratio] 28.84 kg/m2 28.84 kg/m2 eCW1 ([facility]) Heart rate 73 /min 73 /min eCW1 ([facility]) Respiratory rate 18 /min 18 /min eCW1 ([facility]) Body temperature 96.2 [degF] 96.2 [degF] eCW1 ( [facility]) Systolic blood pressure 128 mm[Hg] 128 mm[Hg] e CW1 ([facility]) Diastolic blood pressure 78 mm[Hg] 78 mm[Hg] eCW1 ([facility]) Body weight 177.8 [lb_av] 177.8 [lb_av] eCW1 ([facility]) Body height 65.5 [in_i] 65.5 [in_i] eCW1 ([facility]) Diastolic blood pressure 87 mm[Hg] 87 mm[Hg] eCW1 ([facility]) Body mass index (BMI) [Ratio] 29.13 kg/m2 29.13 kg/m2 eCW1 ([facility]) Systolic blood pressure 134 mm[Hg] 134 mm[Hg] e CW1 ([facility]) Body weight 175 [lb_av] 175 [lb_av] eCW1 ([facility]) Body height 65.5 [in_i] 65.5 [in_i] eCW1 ([facility]) Body mass index (BMI) [Ratio] 28.68 kg/m2 28.68 kg/m2 W1 ([facility]) Heart rate 66 /min 66 /min eCW1 ([facility]) Respiratory rate 19 /min 19 /min eCW1 ([facility]) Body temperature 97.8 [degF] 97.8 [degF] eCW1 ( [facility]) Systolic blood pressure 122 mm[Hg] 122 mm[Hg] e CW1 ([facility]) Diastolic blood pressure 74 mm[Hg] 74 mm[Hg] eCW1 ([facility]) Patient Treatment Plan of Care Planned Activity Planned Date Details Description Data Source (s) Tamsulosin hydrochloride 0.4 MG Oral Capsule [Flomax] 07/28/2020 12:00:00 AM EST eCW1 ([facility])
[2021-06-23] MEDS ORDERED: NS 1,000 ML IV ONE (12:35)
--- NOTE | 2021-06-23 13:08 | REP ---
INDICATION: Syncope/near-syncope/ +covid COMPARISON: 11/04/2015 TECHNIQUE: Portable AP view of the chest FINDINGS: The mediastinum and cardiac silhouette are stable and within normal limits for portable technique. The lung sosa are clear without acute consolidation, effusion, or pneumothorax. Skeletal structures are intact. Stable calcified granulomata noted. IMPRESSION: No acute cardiopulmonary process appreciated. <Electronically signed by Chip Moore > 06/23/21 [id number]
--- OUTSIDE RECORDS SUMMARY | 2021-06-23 13:15 | CCD ---
Author Author [facility] Organization [facility] Address Unknown Phone Unavailable Care Team Providers Care Fuel Truck Driver Name Role Phone Bijal De Oliveira PA [...] PA Unavailable Unavailable CHESTERVIDALJOSH PA Unavailable Unavailable CHESTERJOSH PA Unavailable Unavailable CHESTERVIDALJOSH PA Unavailable Unavailable CHESTERVIDALJOSH PA Unavailable Unavailable CHESTER JOSH PA Unavailable Unavailable CHESTER, JOSH PA Unavailable Unavailable CHESTER, JOSH PA Unavailable Unavailable CHESTER, JOSH PA Unavailable Unavailable CHESTER, JOSH PA Unavailable Unavailable CHESTER JOSH PA [...] is protected by Article 27-F of the [facility] Public Health law. If you continue you may have access to information: Regarding HIV / AIDS; Provided by facilities licensed or operated by the [facility] Office of Mental Health; or Provided by the [facility] Office for People With Developmental Disabilities. If such information is present, then the following [facility] mandated warning applies: This information has been [...] law may result in a fine or halfway sentence or both. A general authorization for the release of medical or other information is NOT sufficient authorization for further disc losure. Family History Family Member Name Family Member Gender Family Member Status Date o f Status Description Data Source(s) Unknown Unknown Problem MEDENT ([facility] ) Encounters Encounter Providers Location Date Indications Data Source(s ) Outpatient Attender: JOSH berry 06/22/2021 09:05:00 AM EDT MEDENT ([facility] [place] [address] [facility] [address] 10/17/2020 12:00:00 AM EST eCW1 ([facility]) [place] [address] [facility] [place] [address] 08/29/2020 12:00:00 AM EST eCW1 ([facility]) Outpatient Attender: Marielle armijo 08/24/2020 12:15:00 PM EST MEDENT ([facility]) [place] [address] [facility] [address] 07/28/2020 12:00:00 AM EST eCW1 ([facility]) [place] [address] [facility] [facility] [address] 07/21/2020 12:00:00 AM EST eCW1 ([facility]) Outpatient Attender: Billie [email or web address] 07/2020 12:00:00 AM EST - 07/20/2020 12:14:56 PM EST [facility] Outpatient [address] [facility] [facility] [address] 06/29/2020 12:00:00 AM EDT eCW1 ([facility]) Office Visit, Est Pt., Level 3 PC [address] [place] [address] 06/29/2020 12:00:00 AM EDT eCW1 ([facility]) Immunizations Vaccine Date Status Description Data Source(s) COVID-19 VACCINE Moderna 10/28/2020 12:00:00 AM EST completed [facility] Vaccine Series Complete: YESThis Data wa s Submitted to [facility] [employer]. COVID-19 VACCINE, MRNA-1273, LNP-S (MODERNA)/PF 10/28/2020 1 2:00:00 AM EST completed [facility] COVID-19 VACCINE, MRNA-1273, LNP-S (MODERNA)/PF 09/30/2020 1 2:00:00 AM EST completed [facility] COVID-19 VACCINE Moderna 09/30/2020 12:00:00 AM EST completed [facility] Vaccine Series Complete: NOThis Data was Submitted to [facility] [employer]. influenza, recombinant, quadrIvalent,injectable, prese rvative free 06/29/2020 08:22:00 AM EDT completed eCW1 ([facility]) influenza, recombinant, quadrIvalent,injectable, prese rvative free 06/29/2020 08:22:00 AM EDT completed eCW1 ([facility]) influenza, recombinant, quadrIvalent,injectable, prese rvative free 06/29/2020 08:22:00 AM EDT completed eCW1 ([facility]) influenza, recombinant, quadrIvalent,injectable, prese rvative free 06/29/2020 08:22:00 AM EDT completed eCW1 ([facility]) influenza, recombinant, quadrIvalent,injectable, prese rvative free 06/29/2020 08:22:00 AM EDT completed eCW1 ([facility]) influenza, recombinant, quadrIvalent,injectable, prese rvative free 06/29/2020 08:22:00 AM EDT completed eCW1 ([facility]) Medications Medication Brand Name Start Date [...] {capsule} active Flomax 0.4 MG eCW1 ([facility]) Tamsulosin hydrochloride 0.4 MG Oral Capsule [Flomax] Flomax 0.4 MG Flomax 0.4 MG 07/28/2020 12:00:00 AM EST 1.0 {capsule} active Flomax 0.4 MG eCW1 ([facility]) Tamsulosin hydrochloride 0.4 MG Oral Capsule [Flomax] Flomax 0.4 MG Flomax 0.4 MG 07/28/2020 12:00:00 AM EST 1.0 {capsule} active Flomax 0.4 MG eCW1 ([facility]) atorvastatin 80 MG Oral Tablet ATORVASTATIN CALCIUM [...] type / Coverage type Policy ID Covered republican ID Covered republican's relationship to dominguez Policy Dominguez Plan Information [facility] Part B [id number] Family Dependent [id number] [facility] Part B [id number] Self [id number] MEDICARE COMPLETE [id number] SP [id number] MEDICARE COMPLETE [id number] SP [id number] [facility]-Health Maintenance Organization ( O) [id number] ANSI-Medicare Part B [id number] [facility]-Health Maintenance Organization ( O) [id number] ANSI-Medicare Part B [id number] [facility]-Health Maintenance Organization ( O) [id number] ANSI-Medicare Part B [id number] ANSI-Health Maintenance Organization ( O) [id number] [facility]-Medicare Part B [id number] ANSI-Health Maintenance Organization ( O) [id number] [employer] Medicare Commercial [id number] Self [id number] [employer] MEDICARE -CLINIC [id number] 18 [id number] [employer] MEDICARE [id number] 18 [id number] MEDICARE COMPLETE-[facility] O [id number] O [id number] [facility] MEDICARE [id number] Keila [id number] [place]/[id number] [place] [id number] [place]/307 [id number] [place]2 [id number] MEDICARE COMPLETE [id number] SP [id number] MEDICARE COMPLETE [id number] SP [id number] [facility] MEDICARE [id number] Keila [id number] ANS-Medicare Part B [id number] Problems, Conditions, and Diagnoses Code Display Name Description Problem Type Effective Dates Data Source(s) E78.00 Pure hypercholesterolemia, unspecified P ure hypercholesterolemia, unspecified Diagnosis 07/20/2020 10:47:57 AM EST [facility] I10 Essential (primary) hypertension Essential (primary) h ypertension Diagnosis 07/20/2020 10:47:57 AM EST [facility] I65.21 Occlusion and stenosis of right carotid artery Occlusion and stenosis of right carotid Diagnosis 07/20/2020 10:47:57 AM EST [facility] 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 Atherosclerotic heart disease of eek Diagnosis 07/20/2020 10:47:57 AM EST [facility] N52.1 [id number] 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 Problem 07/21/2020 12:00:00 AM EST eCW1 ([facility]) L82.1 [id number] SK (seborrheic keratosis) Problem 06/29/2020 12:00:00 AM EDT eCW1 ([facility]) D18.01 [id number] Muhammad angioma Problem 06/29/2020 12:00:00 A M EDT eCW1 ([facility]) D22.61 [id number] Multiple benign nevi of right upper extre mity Problem 06/29/2020 12:00:00 AM EDT eCW1 ([facility]) D22.62 [id number] Multiple benign nevi of left upper extrem ity Problem 06/29/2020 12:00:00 AM EDT eCW1 ([facility]) L90.5 [id number] Scar Problem 06/29/2020 12:00:00 AM ED T eCW1 ([facility]) Surgeries/Procedures Procedure Description Date Indications Data Source(s) OFFICE OUTPATIENT VISIT 15 MINUTES 06/22/2021 12:00:00 AM EDT MEDENT ([facility]) DUPLEX SCAN EXTRACRANIAL ART COMPL BI STUDY 03/17/2021 12:00:00 AM EDT MEDENT ([facility]) uro PVR (Post Voiding Residual) Bladder Scan 0 12:00:00 AM EST eCW1 ([facility]) Immunization: Flublok Quadrivalent (18 years & older) 0.5mL IM (Influenza) 06/29/2020 12:00:00 AM EDT eCW1 ([facility]) Results ID Date Data Source [id number] 04/24/2021 12:00:00 AM EDT [facility] Name Value Range Interpretation Code Description Data Cynthia rce(s) Supporting Document(s) SARS-CoV2 Rapid Antigen Negative [facility] This lab was reported by [facility]. ID Date Data Source [id number] 08/24/2020 12:00:00 AM EST [facility] Name Value Range Interpretation Code Description Data Cynthia rce(s) Supporting Document(s) SARS coronavirus 2 Ag [facility] This lab was ordered by [facility] and reported by [facility]. ID Date Data Source [id number] 03/17/2021 10:36:00 AM EDT MEDENT ([facility]) Name Value Range Interpretation Code Description Data Cynthia rce(s) Supporting Document(s) Carotid Ultrasound Bilateral Laboratory test result MEDENT ([facility]) ID Date Data Source URINE CULTURE 07/21/2020 12:00:00 AM EST eCW1 ([facility]) Name Value Range Interpretation Code Description Data Cynthia rce(s) Supporting Document(s) URINE CULTURE eCW1 ([facility]) ID Date Data Source PSA SCREENING 06/29/2020 06:49:00 AM EDT eCW1 ([facility]) Name Value Range Interpretation Code Description Data Cynthia rce(s) Supporting Document(s) 1.72 PSA SCREENING eCW1 ([facility]) Procedure Social History Code Duration Value Status Description Data Source(s ) Smoking 03/17/2021 12:00:00 AM EDT Patient is a former smoker completed Patient is a former smoker MEDENT ([facility]) Smoking 08/29/2020 12:00:00 AM EST Never Smoker completed Never S moker eCW1 ([facility]) Smoking 08/29/2020 12:00:00 AM EST Never Smoker completed Never S moker eCW1 ([facility]) Smoking 07/21/2020 12:00:00 AM EST Never Smoker completed Never S moker eCW1 ([facility]) Smoking 07/21/2020 12:00:00 AM EST Never Smoker completed Never S moker eCW1 ([facility]) Smoking 06/29/2020 12:00:00 AM EDT Never Smoker completed Never S moker eCW1 ([facility]) Smoking 06/29/2020 12:00:00 AM EDT Never Smoker completed Never S moker eCW1 ([facility]) Vital Signs ID Date Data Source UNK Name Value Range Interpretation Code Description Data Source(s) Systolic blood pressure 132 mm[Hg] 132 mm[Hg] M EDENT ([facility]) Diastolic blood pressure 78 mm[Hg] 78 mm[Hg] MEDENT ([facility]) Heart rate 74 /min 74 /min MEDENT ([facility]) Respiratory rate 20 /min 20 /min MEDENT ( [facility]) Oxygen saturation in Arterial blood by Pulse oximetry 97 % 97 % MEDENT ([facility]) Body temperature 99.1 [degF] 99.1 [degF] MEDENT ([facility]) Body weight 180.00 [lb_av] 180.00 [lb_av] MEDEN T ([facility]) Body height 66 [in_i] 66 [in_i] MEDENT ([facility]) 5'6" Body mass index (BMI) [Ratio] 29.0 kg/m2 29.0 k g/m2 MEDENT ([facility]) Systolic blood pressure 128 mm[Hg] 128 mm[Hg] M EDENT [facility]) Diastolic blood pressure 69 mm[Hg] 69 mm[Hg] MEDENT ([facility]) Systolic blood pressure 132 mm[Hg] 132 mm[Hg] M EDENT ([facility]) Diastolic blood pressure 71 mm[Hg] 71 mm[Hg] MEDENT ([facility]) Heart rate 68 /min 68 /min MEDENT ([facility] Body temperature 95.0 [degF] 95.0 [degF] MEDENT ([facility]) Body weight 178.6 [lb_av] 178.6 [lb_av] eCW1 ([facility]) Body height 65.5 [in_i] 65.5 [in_i] eCW1 ([facility]) Body mass index (BMI) [Ratio] 29.27 kg/m2 29.27 kg/m2 eCW1 ([facility]) Heart rate 71 /min 71 /min eCW1 ([facility]) Respiratory rate 18 /min 18 /min eCW1 ([facility]) Body temperature 96.8 [degF] 96.8 [degF] eCW1 ( [facility]) Systolic blood pressure 136 mm[Hg] 136 mm[Hg] e CW1 ([facility]) Diastolic blood pressure 78 mm[Hg] 78 mm[Hg] eCW1 ([facility]) Body height 66 [in_i] 66 [in_i] MEDENT ([facility]) 5'6" Respiratory rate 18 /min 18 /min MEDENT ( [facility]) Oxygen saturation in Arterial blood by Pulse oximetry 99 % 99 % MEDENT ([facility]) Body temperature 98.6 [degF] 98.6 [degF] MEDENT ([facility]) Body weight 178.00 [lb_av] 178.00 [lb_av] MEDEN T ([facility]) Body mass index (BMI) [Ratio] 28.7 kg/m2 28.7 k g/m2 MEDENT ([facility]) Heart rate 76 /min 76 /min MEDENT ([facility]) Body weight 176 [lb_av] 176 [lb_av] eCW1 ([facility]) Body mass index (BMI) [Ratio] 28.84 kg/m2 28.84 kg/m2 eCW1 ([facility]) Heart rate 73 /min 73 /min eCW1 ([facility]) Respiratory rate 18 /min 18 /min eCW1 ([facility]) Body temperature 96.2 [degF] 96.2 [degF] eCW1 ( [facility]) Systolic blood pressure 128 mm[Hg] 128 mm[Hg] e CW1 ([facility]) Diastolic blood pressure 78 mm[Hg] 78 mm[Hg] eCW1 ([facility]) Body height 65.5 [in_i] 65.5 [in_i] eCW1 ([facility]) Body weight 177.8 [lb_av] 177.8 [lb_av] eCW1 ([facility]) Diastolic blood pressure 87 mm[Hg] 87 mm[Hg] eCW1 ([facility]) Body height 65.5 [in_i] 65.5 [in_i] eCW1 ([facility]) Body mass index (BMI) [Ratio] 29.13 kg/m2 29.13 kg/m2 eCW1 ([facility]) Systolic blood pressure 134 mm[Hg] 134 mm[Hg] e CW1 ([facility]) Body weight 175 [lb_av] 175 [lb_av] eCW1 ([facility]) Body height 65.5 [in_i] 65.5 [in_i] eCW1 ([facility]) Body mass index (BMI) [Ratio] 28.68 kg/m2 28.68 kg/m2 W1 ([facility]) Heart rate 66 /min 66 /min eCW1 ([facility]) Respiratory rate 19 /min 19 /min eCW1 ([facility]) Body temperature 97.8 [degF] 97.8 [degF] eCW1 ( [facility]) Systolic blood pressure 122 mm[Hg] 122 mm[Hg] e CW1 ([facility]) Diastolic blood pressure 74 mm[Hg] 74 mm[Hg] eCW1 ([facility]) Patient Treatment Plan of Care Planned Activity Planned Date Details Description Data Source (s) Tamsulosin hydrochloride 0.4 MG Oral Capsule [Flomax] 07/28/2020 12:00:00 AM EST eCW1 ([facility])
[2021-06-23] MEDS ORDERED: ATOR80TA59 PO (13:31)
[2021-06-23] MEDS ORDERED: MULT-40 PO (13:31)
[2021-06-23] MEDS ORDERED: EZET10TA21 PO (13:31)
[2021-06-23] MEDS ORDERED: TAMS1CAP17 PO (13:31)
[2021-06-23] MEDS ORDERED: LISI10TA22 PO (13:31)
[2021-06-23] MEDS ORDERED: ASPI81TA26 PO (13:31)
[2021-06-23 13:32] LABS: BASO % 0.5 % (0.0-1.0); EOS % 0.5 % (0.0-3.0); HEMATOCRIT 40.2 % (42.0-52.0); HEMOGLOBIN 13.1 g/dl (13.5-17.5); LYMPH # 0.3 10^3/uL (1.5-5.0); LYMPH % 7.3 % (24.0-44.0); MEAN CORPUSCULAR HEMOGLOBIN 30.5 pg (27.0-33.0); MEAN CORPUSCULAR HGB CONC 32.6 g/dl (32.0-36.5); MEAN CORPUSCULAR VOLUME 93.7 fl (80.0-96.0); MONO # 0.9 10^3/uL (0.0-0.8); MONO % 21.1 % (2.0-8.0); NEUTROPHILS # 3.1 10^3/uL (1.5-8.5); NEUTROPHILS % 70.1 % (36.0-66.0); PLATELET COUNT, AUTOMATED 145 10^3/uL (150-450); RED BLOOD COUNT 4.29 10^6/uL (4.30-6.10); WHITE BLOOD COUNT 4.4 10^3/uL (4.0-10.0)
[2021-06-23] MEDS ORDERED: HOME MED LIST COMPLETE! XX SCH (13:35)
[2021-06-23 13:42] LABS: INR 0.99; PROTHROMBIN TIME 13.5 SECONDS (12.7-14.5)
[2021-06-23 13:43] LABS: PARTIAL THROMBOPLASTIN TIME 37.1 SECONDS (25.9-37.0)
[2021-06-23 14:00] LABS: BLOOD UREA NITROGEN 19 MG/DL (7-18); C REACTIVE PROTEIN QUANTITATIV 0.95 MG/DL (0.00-0.30); CALCIUM LEVEL 8.1 MG/DL (8.8-10.2); CARBON DIOXIDE LEVEL 28 MEQ/L (21-32); CHLORIDE LEVEL 104 MEQ/L (98-107); CK-MB VALUE MASS < 1.0 NG/ML (<3.6); CPK CREATINE PHOSPHOKINASE 270 U/L (39-308); CREATININE FOR GFR 1.24 MG/DL (0.70-1.30); FERRITIN 116 NG/ML (26-388); FREE T4 0.85 NG/DL (0.76-1.46); GLOMERULAR FILTRATION RATE > 60.0 (>42); GLUCOSE, FASTING 100 MG/DL (70-100); LDH LACTATE DEHYDROGENASE 167 U/L (87-241); MAGNESIUM LEVEL 1.9 MG/DL (1.8-2.4); MB/CK RELATIVE INDEX 0.37 (< OR =4); POTASSIUM SERUM 4.4 MEQ/L (3.5-5.1); SODIUM LEVEL 137 MEQ/L (136-145); TROPONIN I < 0.02 NG/ML (< 0.10)
[2021-06-23 15:39] VITALS: BP 158/90
--- NOTE | 2021-06-23 18:58 | ECGEPIP ---
[facility] - ED Test Date: 2021-06-23 Pat Name: BRISEIDA ANDREWS Department: Room: - Gender: Male Queen Producer: PANCHO : 1950 Requested By: BRISEIDA Limon Order Number: [id number] Reading MD: Chico Quigley Measurements Intervals Hugo Rate: 63 P: 57 ME: 172 QRS: 4 QRSD: 88 T: 73 QT: 428 QTc: 437 Interpretive Statements Normal sinus rhythm POOR R WAVE PROGRESSION Nonspecific T wave abnormality NO PRIORS FOR COMPARISON Electronically Signed on 06-23-2021 18:58:03 EDT by Chico Quigley
== END 2021-06-23 15:53 | disposition home or self-care (01) ==
LOC: M ED 12:24
DX: U07.1 COVID-19 (principal); R55 Syncope and collapse; K21.9 Gastro-esophageal reflux disease without esophagitis; E78.5 Hyperlipidemia, unspecified; Z95.1 Presence of aortocoronary bypass graft; Z87.891 Personal history of nicotine dependence; Z79.82 Long term (current) use of aspirin; Z79.899 Other long term (current) drug therapy

== ENCOUNTER → 2021-11-24 | Outpatient (REF) | payer MEDICARE ==
[~2021-11-24] MED LIST changes: +ASPI81TA26 PO; +ATOR80TA59 PO; +EZET10TA21 PO; +LISI10TA22 PO; +MULT-40 PO; +TAMS1CAP17 PO
== END ==
LOC: M SFHCCLAY 11:13
PROVIDERS: ATTEND Nurse Practitioner Women's Health
DX: Z12.5 Encounter for screening for malignant neoplasm of prostate (principal)

== ENCOUNTER → 2022-03-05 | Outpatient (REF) | payer MEDICARE ==
[2022-03-05 16:26] LABS: HEMOGLOBIN 14.9 g/dl (13.5-17.5); MEAN CORPUSCULAR HEMOGLOBIN 30.7 pg (27.0-33.0); MEAN CORPUSCULAR HGB CONC 33.1 g/dl (32.0-36.5); MEAN CORPUSCULAR VOLUME 92.8 fl (80.0-96.0); PLATELET COUNT, AUTOMATED 199 10^3/uL (150-450); RED BLOOD COUNT 4.85 10^6/uL (4.30-6.10); WHITE BLOOD COUNT 4.9 10^3/uL (4.0-10.0)
[2022-03-05 16:51] LABS: CHOLESTEROL RISK RATIO 2.07 (<5)
== END ==
LOC: M LABDRAWC 15:53
PROVIDERS: ATTEND Physician Assistant
DX: E78.00 Pure hypercholesterolemia, unspecified (principal); I65.21 Occlusion and stenosis of right carotid artery

== ENCOUNTER → 2022-05-03 | Outpatient (CLI) | payer MEDICARE ==
[~2022-05-03] MED LIST changes: +AMOX125C PO; +FINA5TAB2 PO
== END ==
LOC: M LABSMTC 11:11
PROVIDERS: ATTEND Anesthesiology
DX: Z01.818 Encounter for other preprocedural examination (principal); Z11.52 Encounter for screening for COVID-19

== ENCOUNTER 2022-05-08 06:48 | Day surgery (SDC) | payer MEDICARE ==
[~2022-05-08] VITALS: Ht 170.2 cm; Wt 79.4 kg
[~2022-05-08 06:48] MED LIST changes: +NS 1,000 ML IV ONE
[2022-05-08] MEDS ORDERED: propofoL 200 MG/20 ML VIAL As Ordered ONE ×2 (07:04→08:48)
[2022-05-08] MEDS ORDERED: LIDOCAINE 2% 100MG/5ML SDV (FOR ANES.) As Ordered ONE (07:05)
[2022-05-08 09:36] VITALS: BP 163/86
== END 2022-05-08 09:36 | disposition home or self-care (01) ==
LOC: M OPP 06:48
PROVIDERS: ATTEND Internal Medicine Gastroenterology
DX: Z12.11 Encounter for screening for malignant neoplasm of colon (principal); Z86.010 Personal history of colon polyps; K63.5 Polyp of colon; K57.30 Diverticulosis of large intestine without perforation or abscess without bleeding; K64.8 Other hemorrhoids; I10 Essential (primary) hypertension; N40.0 Benign prostatic hyperplasia without lower urinary tract symptoms; F32.9 Major depressive disorder, single episode, unspecified; G43.909 Migraine, unspecified, not intractable, without status migrainosus; K21.00 Gastro-esophageal reflux disease with esophagitis, without bleeding; Z79.02 Long term (current) use of antithrombotics/antiplatelets; Z79.2 Long term (current) use of antibiotics; Z79.82 Long term (current) use of aspirin; Z79.899 Other long term (current) drug therapy; Z87.891 Personal history of nicotine dependence; Z80.3 Family history of malignant neoplasm of breast

== ENCOUNTER → 2022-05-15 | Outpatient (REF) | payer MEDICARE ==
[~2022-05-15] MED LIST changes: -NS 1,000 ML IV ONE
[2022-05-15 11:30] LABS: APPEARANCE, URINE MANUAL CLEAR (CLEAR); BILIRUBIN, URINE MANUAL NEGATIVE (NEGATIVE); BLOOD URINE MANUAL NEGATIVE (NEGATIVE); COLOR, URINE MANUAL YELLOW (YELLOW); GLUCOSE, URINE (UA) MANUAL NEGATIVE (NEGATIVE); KETONE, URINE MANUAL NEGATIVE (NEGATIVE); LEUKOCYTE ESTERASE, URINE MAN NEGATIVE (NEGATIVE); NITRITE, URINE MANUAL NEGATIVE (NEGATIVE); PROTEIN, URINE MANUAL NEGATIVE (NEGATIVE); SPECIFIC GRAVITY,URINE MANUAL 1.015 (1.002-1.035); UROBILINOGEN, URINE MANUAL NORMAL (NORMAL)
[2022-05-15 11:43] LABS: BASO # 0.1 10^3/uL (0.0-0.2); BASO % 0.7 % (0.0-1.0); EOS # 0.1 10^3/uL (0.0-0.5); EOS % 1.9 % (0.0-3.0); HEMATOCRIT 44.8 % (42.0-52.0); HEMOGLOBIN 14.8 g/dl (13.5-17.5); LYMPH # 0.9 10^3/uL (1.5-5.0); LYMPH % 12.4 % (24.0-44.0); MEAN CORPUSCULAR HEMOGLOBIN 30.9 pg (27.0-33.0); MEAN CORPUSCULAR VOLUME 93.5 fl (80.0-96.0); MONO # 0.6 10^3/uL (0.0-0.8); NEUTROPHILS # 5.8 10^3/uL (1.5-8.5); NEUTROPHILS % 76.6 % (36.0-66.0); PLATELET COUNT, AUTOMATED 231 10^3/uL (150-450); RED BLOOD COUNT 4.79 10^6/uL (4.30-6.10); WHITE BLOOD COUNT 7.5 10^3/uL (4.0-10.0)
[2022-05-15 11:59] LABS: ALBUMIN 4.1 GM/DL (3.2-5.2); ALT/SGPT 47 U/L (12-78); BLOOD UREA NITROGEN 18 MG/DL (7-18); CALCIUM LEVEL 9.2 MG/DL (8.8-10.2); CARBON DIOXIDE LEVEL 29 MEQ/L (21-32); CHLORIDE LEVEL 105 MEQ/L (98-107); CREATININE FOR GFR 1.02 MG/DL (0.70-1.30); GLOMERULAR FILTRATION RATE > 60.0 (>42); GLUCOSE, FASTING 103 MG/DL (70-100); POTASSIUM SERUM 4.5 MEQ/L (3.5-5.1); SODIUM LEVEL 137 MEQ/L (136-145)
== END ==
LOC: M LABDRAWC 11:12
PROVIDERS: ATTEND Nurse Practitioner Family
DX: M75.102 Unspecified rotator cuff tear or rupture of left shoulder, not specified as traumatic (principal)

== ENCOUNTER → 2023-04-25 | Outpatient (CLI) | payer MEDICARE | LOC: M RAD 13:42 | PROVIDERS: ATTEND Surgery Vascular Surgery | DX: I65.23 Occlusion and stenosis of bilateral carotid arteries (principal) ==

== ENCOUNTER → 2023-05-16 | Outpatient (REF) | payer MEDICARE ==
[2023-05-16 17:51] LABS: BASO % 0.6 % (0.0-1.0); EOS % 1.1 % (0.0-3.0); HEMATOCRIT 40.1 % (42.0-52.0); HEMOGLOBIN 13.4 g/dl (13.5-17.5); LYMPH # 0.8 10^3/uL (1.5-5.0); LYMPH % 22.7 % (24.0-44.0); MEAN CORPUSCULAR HEMOGLOBIN 29.9 pg (27.0-33.0); MEAN CORPUSCULAR HGB CONC 33.4 g/dl (32.0-36.5); MEAN CORPUSCULAR VOLUME 89.5 fl (80.0-96.0); MONO # 0.6 10^3/uL (0.0-0.8); MONO % 16.4 % (2.0-8.0); NEUTROPHILS # 2.1 10^3/uL (1.5-8.5); NEUTROPHILS % 58.9 % (36.0-66.0); PLATELET COUNT, AUTOMATED 132 10^3/uL (150-450); RED BLOOD COUNT 4.48 10^6/uL (4.30-6.10); WHITE BLOOD COUNT 3.5 10^3/uL (4.0-10.0)
[2023-05-16 18:02] LABS: ALBUMIN 3.6 G/DL (3.2-5.2); ALKALINE PHOSPHATASE 74 U/L (46-116); ALT/SGPT 131 U/L (7.0-40); AST/SGOT 98 U/L (<34); BILIRUBIN,TOTAL 1.5 MG/DL (0.3-1.2); BLOOD UREA NITROGEN 22 MG/DL (9-23); CALCIUM LEVEL 8.5 MG/DL (8.3-10.6); CARBON DIOXIDE LEVEL 24 MMOL/L (20-31); CHLORIDE LEVEL 104 MMOL/L (98-107); CREATININE FOR GFR 0.94 MG/DL (0.70-1.30); GLOMERULAR FILTRATION RATE > 60.0 (>42); GLUCOSE, FASTING 109 MG/DL (74-106); POTASSIUM SERUM 4.4 MMOL/L (3.5-5.1); SODIUM LEVEL 135 MMOL/L (136-145); TOTAL PROTEIN 6.3 G/DL (5.7-8.2)
[2023-05-17 15:23] LABS: HEPATITIS B SURFACE ANTIBODY NEGATIVE (POSITIVE)
[2023-05-17 15:55] LABS: HEPATITIS C VIRUS ABY INDEX 0.14 INDEX (<0.8)
== END ==
LOC: M SFHCCLAY 11:33
PROVIDERS: ATTEND Family Medicine
DX: R50.9 Fever, unspecified (principal)

== ENCOUNTER → 2023-07-01 | Outpatient (REF) | payer MEDICARE | LOC: M SFHCCLAY 08:27 | PROVIDERS: ATTEND Family Medicine | DX: Z53.9 Procedure and treatment not carried out, unspecified reason (principal) ==

== ENCOUNTER → 2023-07-05 | Outpatient (REF) | payer MEDICARE ==
[2023-07-05 17:49] LABS: HEMOGLOBIN 13.9 g/dl (13.5-17.5); MEAN CORPUSCULAR HGB CONC 33.9 g/dl (32.0-36.5); MEAN CORPUSCULAR VOLUME 91.3 fl (80.0-96.0); PLATELET COUNT, AUTOMATED 186 10^3/uL (150-450); RED BLOOD COUNT 4.49 10^6/uL (4.30-6.10); WHITE BLOOD COUNT 4.4 10^3/uL (4.0-10.0)
[2023-07-05 18:16] LABS: ALBUMIN 3.7 G/DL (3.2-5.2); ALKALINE PHOSPHATASE 61 U/L (46-116); ALT/SGPT 41 U/L (7.0-40); AST/SGOT 31 U/L (<34); BILIRUBIN,TOTAL 0.9 MG/DL (0.3-1.2); BLOOD UREA NITROGEN 17 MG/DL (9-23); CALCIUM LEVEL 8.8 MG/DL (8.3-10.6); CARBON DIOXIDE LEVEL 26 MMOL/L (20-31); CHLORIDE LEVEL 103 MMOL/L (98-107); CHOLESTEROL LEVEL 116 MG/DL (<200); CHOLESTEROL RISK RATIO 2.37 (<5); CREATININE FOR GFR 0.88 MG/DL (0.70-1.30); GLOMERULAR FILTRATION RATE > 60.0 (>42); GLUCOSE, FASTING 98 MG/DL (74-106); HDL CHOLESTEROL 48.9 MG/DL (>40); LDL CHOLESTEROL 55.7 MG/DL (<100); NON-HDL-C 67.1 MG/DL; POTASSIUM SERUM 4.4 MMOL/L (3.5-5.1); SODIUM LEVEL 139 MMOL/L (136-145); TOTAL PROTEIN 6.2 G/DL (5.7-8.2); TRIGLYCERIDES LEVEL 57 MG/DL (<150)
== END ==
LOC: M SFHCCLAY 09:31
PROVIDERS: ATTEND Family Medicine
DX: Z00.00 Encounter for general adult medical examination without abnormal findings (principal); I10 Essential (primary) hypertension; N40.1 Benign prostatic hyperplasia with lower urinary tract symptoms; E78.00 Pure hypercholesterolemia, unspecified; Z79.899 Other long term (current) drug therapy

== ENCOUNTER → 2023-11-04 | Outpatient (CLI) | payer MEDICARE, OTHER | LOC: M RAD 10:31 | PROVIDERS: ATTEND Physician Assistant | DX: I65.22 Occlusion and stenosis of left carotid artery (principal) ==

== ENCOUNTER → 2023-12-24 | Outpatient (CLI) | payer OTHER | LOC: M CLY 11:01 | PROVIDERS: ATTEND Family Medicine | DX: R05.3 Chronic cough (principal) ==

== ENCOUNTER → 2024-05-08 | Outpatient (CLI) | payer OTHER | LOC: M RAD 09:56 | PROVIDERS: ATTEND Physician Assistant | DX: I65.22 Occlusion and stenosis of left carotid artery (principal) ==

== ENCOUNTER → 2024-11-04 | Outpatient (REF) | payer MEDICARE ==
[2024-11-04 17:14] LABS: HEMOGLOBIN 14.3 g/dl (13.5-17.5); MEAN CORPUSCULAR HGB CONC 32.5 g/dl (32.0-36.5); MEAN CORPUSCULAR VOLUME 92.4 fl (80.0-96.0); PLATELET COUNT, AUTOMATED 219 10^3/uL (150-450); RED BLOOD COUNT 4.76 10^6/uL (4.30-6.10); WHITE BLOOD COUNT 6.2 10^3/uL (4.0-10.0)
[2024-11-04 17:18] LABS: ALKALINE PHOSPHATASE 64 U/L (40-129); ALT/SGPT 43 U/L (7.0-40); AST/SGOT 31 U/L (<34); BILIRUBIN,TOTAL 0.9 MG/DL (0.3-1.2); BLOOD UREA NITROGEN 19 MG/DL (9-23); CALCIUM LEVEL 9.1 MG/DL (8.3-10.6); CARBON DIOXIDE LEVEL 30 MMOL/L (20-31); CHLORIDE LEVEL 104 MMOL/L (98-107); CHOLESTEROL LEVEL 129 MG/DL (<200); CHOLESTEROL RISK RATIO 2.38 (<5); GLOMERULAR FILTRATION RATE > 60.0 (>42); GLUCOSE, FASTING 99 MG/DL (74-106); HDL CHOLESTEROL 54.1 MG/DL (>40); LDL CHOLESTEROL 60.1 MG/DL (<100); NON-HDL-C 74.9 MG/DL; POTASSIUM SERUM 4.6 MMOL/L (3.5-5.1); SODIUM LEVEL 142 MMOL/L (136-145); TOTAL PROTEIN 6.7 G/DL (5.7-8.2); TRIGLYCERIDES LEVEL 74 MG/DL (<150)
[2024-11-04 17:27] LABS: HEMOGLOBIN A1c 5.4 % (4.0-6.0)
== END ==
LOC: M SFHCCLAY 08:57
PROVIDERS: ATTEND Urology
DX: I10 Essential (primary) hypertension (principal); K21.9 Gastro-esophageal reflux disease without esophagitis; Z95.1 Presence of aortocoronary bypass graft; Z12.5 Encounter for screening for malignant neoplasm of prostate; Z79.899 Other long term (current) drug therapy
CPT/HCPCS: 80053; 80061; 83036; 85027; G0103

== ENCOUNTER → 2024-11-09 | Outpatient (CLI) | payer BC, MEDICARE, OTHER | LOC: M RAD 11:58 | PROVIDERS: ATTEND Physician Assistant | DX: I65.22 Occlusion and stenosis of left carotid artery (principal) ==